=== PATIENT | male | born 1995 | race Caucasian/White ===

== ENCOUNTER → 2019-02-27 | Outpatient (CLI) | payer BC ==
[~2019-02-27] MED LIST: CYCL10TA9 PO; HYDR-1231 PO
[2019-02-27 12:37] LABS: HEMOGLOBIN 13.6 G/DL (13.3-17.7); MEAN PLATELET VOLUME 10.5 FL (7.4-10.4); RED CELL DISTRIBUTION WIDTH 12.8 % (10.0-14.5); WHITE BLOOD COUNT 5.1 10^3/uL (4.3-11.0)
[2019-02-27 12:54] LABS: ALANINE AMINOTRANSFERASE 35 U/L (0-55); ALBUMIN 4.7 GM/DL (3.2-4.5); ALKALINE PHOSPHATASE 57 U/L (40-136); BILIRUBIN,TOTAL 0.6 MG/DL (0.1-1.0); BUN/CREATININE RATIO 7; CALCIUM 9.4 MG/DL (8.5-10.1); CARBON DIOXIDE 30 MMOL/L (21-32); CHLORIDE 107 MMOL/L (98-107); CREATININE SERUM 0.89 MG/DL (0.60-1.30); GFR ESTIMATED > 60; GLUCOSE 87 MG/DL (70-105); POTASSIUM 3.8 MMOL/L (3.6-5.0); SODIUM 142 MMOL/L (135-145); TOTAL PROTEIN 7.3 GM/DL (6.4-8.2)
[2019-02-27 13:13] LABS: TSH (THYROID ANALYZER) 2.53 UIU/ML (0.35-4.94)
== END ==
LOC: LAB 12:19
PROVIDERS: ATTEND Nurse Practitioner Family
DX: J02.9 Acute pharyngitis, unspecified (principal); M79.10 Myalgia, unspecified site; D69.6 Thrombocytopenia, unspecified; D64.9 Anemia, unspecified; R59.9 Enlarged lymph nodes, unspecified; M25.50 Pain in unspecified joint; R50.9 Fever, unspecified
CPT/HCPCS: 36415; 80053; 84443; 85027; 86618; 86663; 86664; 86665; 86666; 86668; 86757